=== PATIENT | male | born 1985 | race Two or more races ===

== ENCOUNTER 2020-06-14 14:11 | Emergency (ER) | payer OTHER ==
[~2020-06-14] VITALS: Ht 167.6 cm; Wt 72.0 kg
[2020-06-14 14:26] VITALS: BP 110/38
[2020-06-14] MEDS ORDERED: HYDROcodone/APAP 5/325MG 1 TAB TABLET PO ONE (15:30)
[2020-06-14] MEDS ORDERED: LIDOCAINE (700MG/PATCH) PATCH. TD SCH (15:30)
[2020-06-14] MEDS ORDERED: KETOROLAC 30 MG/ML VIAL. IM ONE (15:30)
[2020-06-14] MEDS ORDERED: CYCLOBENZAPRINE 10 MG TABLET. PO ONE (15:30)
--- NOTE | 2020-06-14 15:35 | PHYS DOC ---
Past History Past Medical History: No Pertinent History Past Surgical History: No Surgical History Alcohol Use: None General Adult EDM: Chief Complaint: LOWER EXT PAIN HPI: HPI: History is obtained from the patient. Patient is a 34-year-old male with no reported PMH who presents with complaint of right lower back pain. 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 He states the pain began 2 days ago after a strenuous workout. He states the pain began as a dull cramping pain in his right lower back. He states the following morning after waking up he noted intense cramping and had significant difficulty getting out of bed. He states he was able to go to work however where he works at [employer]. States pain is sharp in nature radiates down his right leg. States he is able to ambulate and bend his leg although it is somewhat painful. Denies abdominal pain. Denies midline back pain. Denies any syncope. Denies fevers or vomiting. Denies chest pain or shortness of breath. Not tried any medication prior to arrival. Denies direct trauma to the back through his training or any other activity. Patient denies any urinary retention, stool incontinence, saddle anesthesia, history of IV drug use, or history of cancer. Review of Systems: Review of Systems: Constitutional: Denies fever or chills Eyes: Denies change in visual acuity HENT: Denies nasal congestion or sore throat Respiratory: Denies cough or shortness of breath Cardiovascular: Denies chest pain or edema GI: Denies abdominal pain, nausea, vomiting, bloody stools or diarrhea : Denies dysuria Musculoskeletal: Positive for back pain Integument: Denies rash Neurologic: Denies headache, focal weakness or sensory changes Endocrine: Denies polyuria or polydipsia Lymphatic: Denies swollen glands Psychiatric: Denies depression or anxiety Heart Score: Risk Factors: Risk Factors: DM, Current or recent (<one month) smoker, HTN, HLP, family history of CAD, obesity. Risk Scores: Score 0 - 3: 2.5% MACE over next 6 weeks - Discharge Home Score 4 - 6: 20.3% MACE over next 6 weeks - Admit for Clinical Observation Score 7 - 10: 72.7% MACE over next 6 weeks - Early Invasive Strategies Current Medications: Current Meds: Current Medications Medications (Trade) Dose Ordered Sig/Rosmery Start Time Stop Time Status Last Admin Dose Admin Acetaminophen/ Hydrocodone Bitart (Lortab 5/325) 1 tab 1X ONCE 06/14/20 15:30 06/14/20 15:31 DC Cyclobenzaprine HCl (Flexeril) 5 mg 1X ONCE 06/14/20 15:30 06/14/20 15:31 DC Ketorolac Tromethamine (Toradol 30mg Vial) 30 mg 1X ONCE 06/14/20 15:30 06/14/20 15:31 DC Lidocaine (Lidoderm) 1 patch 1X 06/14/20 15:30 Allergies: Allergies: Allergies Coded Allergies Type Severity Reaction Last Updated Verified No Known Drug Allergies 06/14/20 No Physical Exam: PE: Constitutional: Well developed, well nourished, no acute distress, non-toxic appearance. [] HENT: Normocephalic, atraumatic, bilateral external ears normal, oropharynx moist, no oral exudates, nose normal. [] Eyes: PERRLA, EOMI, conjunctiva normal, no discharge. [] Neck: Normal range of motion, no tenderness, supple, no stridor. [] Cardiovascular:Heart rate regular rhythm, no murmur [] Lungs & Thorax: Bilateral breath sounds clear to auscultation [] Abdomen: , soft, no tenderness, no masses, no pulsatile masses. [] Skin: Warm, dry, no erythema, no rash. [] Back: + 5/5 motor strength in dorsiflexion and plantarflexion of the great toes bilaterally. Sensation intact between the webbing of the first and second toes bilaterally. Hypertonic musculature palpated in the right paraspinal tissue in the lumbar region. Reproducible tenderness. Positive straight leg test. No midline tenderness, step-offs, or deformities. Extremities: No tenderness, no cyanosis, no clubbing, ROM intact, no edema. [] Neurologic: Alert and oriented X 3, normal motor function, normal sensory function, no focal deficits noted. [] Psychologic: Affect normal, judgement normal, mood normal. [] Current Patient Data: Vital Signs: Vital Signs Date Time Temp Pulse Resp B/P (MAP) Pulse Ox O2 Delivery O2 Flow Rate FiO2 06/14/20 14:26 98.8 57 16 110/38 (62) 100 Room Air EKG: EKG: [] Radiology/Procedures: Radiology/Procedures: [] Course & Med Decision Making: Course & Med Decision Making Pertinent Labs and Imaging studies reviewed. (See chart for details) [] Overall patient is well-appearing 34-year-old male who presents with chief complaint of right lower back pain. No red flag signs or symptoms regarding his back pain. Is likely due to his intense workouts. Given the lack of red flag signs and symptoms or trauma CT imaging will be deferred. Denies urinary symptoms. Urinalysis will be deferred. This likely musculoskeletal nature based on history and exam. Patient was given medications in the emergency department and did show significant relief. He was able to ambulate without difficulty. His repeat examination remains benign. I do feel his appropriate for discharge home. He will be given a primary care doctor to follow-up with. Return precautions discussed and understood. Counseled on back pain exercises. Stable for discharge home. Dragon Disclaimer: Dragon Disclaimer: This electronic medical record was generated, in whole or in part, using a voice recognition dictation system. Departure Departure: Impression: Primary Impression: Low back pain Qualified Codes: M54.41 - Lumbago with sciatica, right side Disposition: HOME/RESIDENCE PRIOR TO ADM Condition: STABLE Referrals: CARMEL SHEETS MD (PCP) Patient Instructions: Back Exercises Additional Instructions: Please follow-up your primary care physician in the next 2 to 3 days. Scripts Lidocaine (Lidocaine PATCH ) 1 Each Adh..patch 1 EACH TP DAILY for FOR LOCAL PAIN for 5 Days, #5 PATCH REMOVE AFTER 12 HOURS. 4% Prov: ALISHA HUBBARD DO 06/14/20 Ibuprofen (IBUPROFEN) 200 Mg Tablet 600 MG PO QIDPRN PRN for PAIN, #15 TAB Prov: ALISHA HUBBARD DO 06/14/20 Cyclobenzaprine Hcl (CYCLOBENZAPRINE HCL) 10 Mg Tablet 1 TAB PO TID PRN PRN for PAIN, #12 TAB Prov: ALISHA HUBBARD DO 06/14/20 ALISHA HUBBARD DO Jun 14, 2020 15:35
[2020-06-14] MEDS ORDERED: LIDO700A21 TP (15:55)
[2020-06-14] MEDS ORDERED: IBUP-1673 PO (15:55)
[2020-06-14] MEDS ORDERED: CYCL-331 PO (15:55)
== END 2020-06-14 16:10 | disposition home or self-care (01) ==
LOC: ER 14:11
DX: M54.41 Lumbago with sciatica, right side (principal)
CPT/HCPCS: 96372; 99284; J1885

== ENCOUNTER 2020-06-18 10:22 | Emergency (ER) | payer OTHER ==
[~2020-06-18] VITALS: Ht 167.6 cm; Wt 74.4 kg
[~2020-06-18 10:22] MED LIST: CYCL-331 PO; IBUP-1673 PO; LIDO700A21 TP
[2020-06-18 11:00] VITALS: BP 106/66
[2020-06-18] MEDS ORDERED: LIDOCAINE (700MG/PATCH) PATCH. TD SCH (11:15)
[2020-06-18] MEDS ORDERED: KETOROLAC 30 MG/ML VIAL. IM ONE (11:15)
[2020-06-18] MEDS ORDERED: CYCLOBENZAPRINE 10 MG TABLET. PO ONE (11:15)
--- NOTE | 2020-06-18 11:37 | RAD ---
VENOUS LOWER EXTREMITY RIGHT History: Reason: RLE pain / Spl. Instructions: / History: Comparison: None. Discussion: Multiple longitudinal and transverse high resolution real-time images of the venous system of right lower extremity were obtained with color and Doppler sampling. The common femoral, superficial femoral, popliteal and proximal calf veins are all patent and demonstrate normal flow and compressibility. Normal respiratory phasicity and augmentation is present. Mildly prominent right inguinal lymph nodes, likely reactive. Impression: 1. No evidence of deep vein thrombosis. Electronically signed by: Red Lange DO (06/18/2020 11:35 AM) [id number]
--- NOTE | 2020-06-18 12:02 | RAD ---
CT LUMBAR SPINE WO CONTRAST, CT THORACIC SPINE WO CONTRAST History:Reason: low back pain. numbness radiating down R leg. / Spl. Instructions: / History: Technique: Noncontrast CT was performed of the lumbar spine. Multiplanar reconstructions were performed. Exposure: One or more of the following individualized dose reduction techniques were utilized for this examination: 1. Automated exposure control 2. Adjustment of the mA and/or kV according to patient size 3. Use of iterative reconstruction technique. Comparison: None Findings: Thoracic spine CT: Normal vertebral body height and alignment. No fracture. Mild multilevel degenerative disc changes most prominent T10-T11 and T11-T12. No high-grade canal or neuroforaminal narrowing. 5 mm right lower lobe pulmonary nodule (series 2 image 70). Prior cholecystectomy. CT lumbar spine: Minimal retrolisthesis L5 on S1. Normal vertebral body height. No fracture. T12-L1: No canal or neuroforaminal narrowing. L1-L2: No canal or neuroforaminal narrowing. L2-L3: Minimal disc bulge. No canal or neuroforaminal narrowing. L3-L4: Minimal disc bulge. No canal or neuroforaminal narrowing. L4-L5: Left central disc protrusion. Mild left subarticular recess narrowing with probable abutment of the descending left L5 nerve root.. No canal narrowing. Mild facet arthropathy. Ligamentum flavum thickening. No neuroforaminal narrowing. L5-S1: Broad-based central disc bulge. Mild facet arthropathy. Bilateral subarticular recess narrowing with probable abutment of the descending S1 nerve roots. Minimal canal narrowing. No neuroforaminal narrowing. Impression: Thoracic spine CT: 1. Mild multilevel thoracic spondylosis. 2. Small right lower lobe pulmonary nodule. Recommend one-year follow-up if high risk. Lumbar spine CT: 1. Mild lumbar spondylosis most prominent L4-L5 and L5-S1 with subarticular recess narrowing. Correlate for radiculopathy. MRI can better evaluate as clinically warranted. Electronically signed by: Red Lange DO (06/18/2020 11:59 AM) [id number]
[2020-06-18] MEDS ORDERED: METH8TAB3 PO (12:17)
--- NOTE | 2020-06-18 12:17 | PHYS DOC ---
Past History Past Medical History: No Pertinent History Past Surgical History: Cholecystectomy, Other Additional Past Surgical Histo: RIGHT ANKLE Alcohol Use: None General Adult EDM: Chief Complaint: BACK PAIN OR INJURY HPI: HPI: History obtained for the patient. Patient is a 34-year-old male with no reported PMH who presents with chief complaint of right lower back pain. Patient states he has had the pain for the past week. He states that he was seen in our emergency department approximately 6 days ago for similar issue. States he was discharged home with medication that helped temporarily. He states he did follow-up with his primary care physician yesterday who did give him an injection of some sort but did not help the pain. States the pain is been persistent. States that his right lower back pain that radiates down his right leg. He does note associated paresthesias. He states it is somewhat more painful to ambulate or bend over. 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 He states he has been able to ambulate. Denies abdominal pain. Does note some right posterior calf pain. Denies any leg swelling. Denies any increase redness. Denies any IV drug use. Denies any trauma to the back directly. His greatest complaint currently is that his back pain does not seem to be improving. Denies fevers or vomiting. States pain is aching in nature. Patient denies any urinary retention, stool incontinence, saddle anesthesia, history of IV drug use, or history of cancer.. Review of Systems: Review of Systems: Constitutional: Denies fever or chills Eyes: Denies change in visual acuity HENT: Denies nasal congestion or sore throat Respiratory: Denies cough or shortness of breath Cardiovascular: Denies chest pain or edema GI: Denies abdominal pain, nausea, vomiting, bloody stools or diarrhea : Denies dysuria Musculoskeletal: Positive for back pain Integument: Denies rash Neurologic: Denies headache, focal weakness or sensory changes Endocrine: Denies polyuria or polydipsia Lymphatic: Denies swollen glands Psychiatric: Denies depression or anxiety Heart Score: Risk Factors: Risk Factors: DM, Current or recent (<one month) smoker, HTN, HLP, family histo ry of CAD, obesity. Risk Scores: Score 0 - 3: 2.5% MACE over next 6 weeks - Discharge Home Score 4 - 6: 20.3% MACE over next 6 weeks - Admit for Clinical Observation Score 7 - 10: 72.7% MACE over next 6 weeks - Early Invasive Strategies Current Medications: Current Meds: Current Medications Medications (Trade) Dose Ordered Sig/[facility] Start Time Stop Time Status Last Admin Dose Admin Cyclobenzaprine HCl (Flexeril) 10 mg 1X ONCE 06/18/20 11:15 06/18/20 11:16 DC 06/18/20 11:40 10 MG Ketorolac Tromethamine (Toradol 30mg Vial) 30 mg 1X ONCE 06/18/20 11:15 06/18/20 11:16 DC 06/18/20 11:41 30 MG Lidocaine (Lidoderm) 1 patch 1X 06/18/20 11:15 Allergies: Allergies: Allergies Coded Allergies Type Severity Reaction Last Updated Verified No Known Drug Allergies 06/14/20 No Physical Exam: PE: Constitutional: Well developed, well nourished, no acute distress, non-toxic appearance. [] HENT: Normocephalic, atraumatic, bilateral external ears normal, oropharynx moist, no oral exudates, nose normal. [] Eyes: PERRLA, EOMI, conjunctiva normal, no discharge. [] Neck: Normal range of motion, no tenderness, supple, no stridor. [] Cardiovascular:Heart rate regular rhythm, no murmur [] Lungs & Thorax: Bilateral breath sounds clear to auscultation [] Abdomen: Right-sided associated hypertonic musculature appreciated. Soft, no tenderness, no masses, no pulsatile masses. [] Skin: Warm, dry, no erythema, no rash. [] Back: No cervical, thoracic, or lumbar midline tenderness palpation, step-offs, or deformities. Positive straight leg test on the right. + 5/5 motor strength in dorsiflexion and plantarflexion of the great toes bilaterally. Sensation intact between the webbing of the first and second toes bilaterally. Extremities: No tenderness, no cyanosis, no clubbing, ROM intact, no edema. Strong +2-4 DP pulses bilaterally. No coolness to touch. Brisk capillary refill. [] Neurologic: Alert and oriented X 3, normal motor function, normal sensory function, no focal deficits noted. [] Psychologic: Affect normal, judgement normal, mood normal. [] Current Patient Data: Vital Signs: Vital Signs Date Time Temp Pulse Resp B/P (MAP) Pulse Ox O2 Delivery O2 Flow Rate FiO2 06/18/20 11:00 97.9 85 20 106/66 (79) 98 Room Air EKG: EKG: [] Radiology/Procedures: Radiology/Procedures: [address] [address] IMAGING REPORT Signed PATIENT: DIMITRY OROZCO ACCOUNT: [id number] : 1985 LOCATION: ER AGE: 34 SEX: M EXAM STATUS: REG ER ORD. PHYSICIAN: ALISHA HUBBARD DO REASON: low back pain. numbness radiating down R leg. PROCEDURE: CT LUMBAR SPINE WO CONTRAST CT LUMBAR SPINE WO CONTRAST, CT THORACIC SPINE WO CONTRAST History:Reason: low back pain. numbness radiating down R leg. / Spl. Instructions: / History: Technique: Noncontrast CT was performed of the lumbar spine. Multiplanar reconstructions were performed. Exposure: One or more of the following individualized dose reduction techniques were utilized for this examination: 1. Automated exposure control 2. Adjustment of the mA and/or kV according to patient size 3. Use of iterative reconstruction technique. Comparison: None Findings: Thoracic spine CT: Normal vertebral body height and alignment. No fracture. Mild multilevel degenerative disc changes most prominent T10-T11 and T11-T12. No high-grade canal or neuroforaminal narrowing. 5 mm right lower lobe pulmonary nodule (series 2 image 70). Prior cholecystectomy. CT lumbar spine: Minimal retrolisthesis L5 on S1. Normal vertebral body height. No fracture. T12-L1: No canal or neuroforaminal narrowing. L1-L2: No canal or neuroforaminal narrowing. L2-L3: Minimal disc bulge. No canal or neuroforaminal narrowing. L3-L4: Minimal disc bulge. No canal or neuroforaminal narrowing. L4-L5: Left central disc protrusion. Mild left subarticular recess narrowing with probable abutment of the descending left L5 nerve root.. No canal narrowing. Mild facet arthropathy. Ligamentum flavum thickening. No neuroforaminal narrowing. L5-S1: Broad-based central disc bulge. Mild facet arthropathy. Bilateral subarticular recess narrowing with probable abutment of the descending S1 nerve roots. Minimal canal narrowing. No neuroforaminal narrowing. Impression: Thoracic spine CT: 1. Mild multilevel thoracic spondylosis. 2. Small right lower lobe pulmonary nodule. Recommend one-year follow-up if high risk. Lumbar spine CT: 1. Mild lumbar spondylosis most prominent L4-L5 and L5-S1 with subarticular recess narrowing. Correlate for radiculopathy. MRI can better evaluate as clinically warranted. Electronically signed by: Red Lange DO (06/18/2020 11:59 AM) [id number] DICTATED AND SIGNED BY: RED LANGE DO DATE: 06/18/20 [id number] CC: CARMEL SHEETS MD; ALISHA HUBBARD DO ~ [place] [address] IMAGING REPORT Signed PATIENT: DIMITRY OROZCO ACCOUNT: [id number] : 1985 LOCATION: ER AGE: 34 SEX: M EXAM STATUS: PRE ER ORD. PHYSICIAN: ALISHA HUBBARD DO REASON: RLE pain PROCEDURE: VENOUS LOWER EXTREMITY RIGHT VENOUS LOWER EXTREMITY RIGHT History: Reason: RLE pain / Spl. Instructions: / History: Comparison: None. Discussion: Multiple longitudinal and transverse high resolution real-time images of the venous system of right lower extremity were obtained with color and Doppler sampling. The common femoral, superficial femoral, popliteal and proximal calf veins are all patent and demonstrate normal flow and compressibility. Normal respiratory phasicity and augmentation is present. Mildly prominent right inguinal lymph nodes, likely reactive. Impression: 1. No evidence of deep vein thrombosis. Electronically signed by: Red Lange DO (06/18/2020 11:35 AM) [id number] DICTATED AND SIGNED BY: RED LAGNE DO DATE: 06/18/20 [id number] CC: CARMEL SHEETS MD; ALISHA HUBBARD DO ~ [] Course & Med Decision Making: Course & Med Decision Making Pertinent Labs and Imaging studies reviewed. (See chart for details) [] Patient is an overall well-appearing 34-year-old male who presents with chief complaint of right lower back pain that radiates down his right leg. He notes associated paresthesias. Low suspicion for vascular etiology. Strong palpable +2-4 DP pulses bilaterally. DVT study of the right lower extremity negative. CT imaging of the thoracic and lumbar spine did show spondylolysis of multiple levels concerning for associated radiculopathy. This does appear consistent with the clinical picture. Do not feel emergent MRI is indicated given he has no acute neurologic symptoms outside of paresthesias. He has been able to ambulate. Continues to deny any red flag signs or symptoms regarding his back pain. He was c encouraged to continue to use supportive care at home. I instructed him to follow-up with Dr. Hopper again in the next 2 to 3 days which he states he can do. He may benefit from outpatient MRI. He will be given a short course of oral steroids for potential swelling. Return precautions discussed and understood. Stable for discharge home. James Disclaimer: James Disclaimer: This electronic medical record was generated, in whole or in part, using a voice recognition dictation system. Departure Departure: Impression: Primary Impression: Low back pain Qualified Codes: M54.41 - Lumbago with sciatica, right side Additional Impressions: Spondylosis Pulmonary nodule Disposition: HOME SELF CARE/HOMELESS Condition: STABLE Referrals: CARMEL SHEETS MD (PCP) Patient Instructions: Spondylolysis with [facility] Additional Instructions: Please follow-up with your primary care physician in the next 2 to 3 days. Scripts Methylprednisolone (METHYLPREDNISOLONE) 8 Mg Tablet 8 MG PO DAILY for pain, #36 TAB Prov: ALISHA HUBBARD DO 06/18/20 ALISHA HUBBARD DO Jun 18, 2020 12:17
== END 2020-06-18 12:30 | disposition home or self-care (01) ==
LOC: ER 10:22
DX: M54.41 Lumbago with sciatica, right side (principal); M47.817 Spondylosis without myelopathy or radiculopathy, lumbosacral region; R91.1 Solitary pulmonary nodule; M79.661 Pain in right lower leg
CPT/HCPCS: 72128; 72131; 93971; 99285; J1885

== ENCOUNTER 2020-12-20 09:17 | Emergency (ER) | payer OTHER ==
[~2020-12-20] VITALS: Ht 167.6 cm; Wt 70.4 kg
[~2020-12-20 09:17] MED LIST changes: +METH8TAB3 PO
[2020-12-20 09:25] VITALS: BP 123/65
--- NOTE | 2020-12-20 10:13 | PHYS DOC ---
Past History Past Medical History: No Pertinent History Past Surgical History: Other Additional Past Surgical Histo: left ankle Alcohol Use: None Adult General Chief Complaint Chief Complaint: LOWER EXTREMITY SWELLING HPI HPI Patient is a healthy 35-year-old male who presents for left leg pain. Onset was on Monday, reports he was at [employer] martial arts practice and got kicked in the left lateral portion of his leg. Ever since, he has had focal nonradiating pain to medial portion of left knee. States he was able to work over the weekend at [employer] but reports increased pain, erythema, development of heat and tenderness with palpation. He has no known medical issues, takes no medications on a daily basis besides vitamins. No history of MRSA. Has no crepitus, motor or sensory function loss, no neurologic symptoms Review of Systems Review of Systems Fourteen body systems of review of systems have been reviewed. See HPI for pertinent positives and negative responses, other parks all other systems are negative, non-pertinent or non-contributory Allergies Allergies Allergies Coded Allergies Type Severity Reaction Last Updated Verified No Known Drug Allergies 06/14/20 No Physical Exam Physical Exam Constitutional: Well developed, well nourished, no acute distress, non-toxic appearance. HENT: Normocephalic, atraumatic, bilateral external ears normal, oropharynx moist, no oral exudates, nose normal. Eyes: PERRLA, EOMI, conjunctiva normal, no discharge. Neck: Normal range of motion, no tenderness, supple, no stridor. Cardiovascular: Heart rate regular, sinus rhythm, no murmurs rubs or gallops Lungs & Thorax: Bilateral breath sounds clear to auscultation Abdomen: Bowel sounds normal, soft, no tenderness, no masses, no pulsatile masses. Nonsurgical abdomen, no peritoneal signs Skin: Warm, dry, erythematous region medial and inferior to actual knee joint without any palpable abnormalities of the knee with various anterior posterior Thalia test, valgus varus strain, no crepitus, no obvious effusion. Skin findings consistent with cellulitis given presentation and symptoms. Back: No tenderness, no CVA tenderness. Extremities: No tenderness, no cyanosis, no clubbing, ROM intact, no edema. Legs equal in diameter, no tenderness to palpation of calf muscles/negative Homans' sign Neurologic: Alert and oriented X 3, grossly normal motor & sensory function, no focal deficits noted. Psychologic: Affect normal, judgement normal, mood normal. Current Patient Data Vital Signs Vital Signs Date Time Temp Pulse Resp B/P (MAP) Pulse Ox O2 Delivery O2 Flow Rate FiO2 12/20/20 09:25 99.2 97 16 123/65 (84) 98 Room Air EKG EKG [] Radiology/Procedures Radiology/Procedures Exam performed: 2 views left tibia fibula and 3 views left knee. Clinical indication: Pain Date of Service: 12/20/2020 Comparison: None available Findings: Normal alignment of the medial and lateral tibiofemoral joint is preserved. The patellofemoral joint appears unremarkable. The articular margins are smooth. There is no fracture or dislocation. Evidence of calcific loose body or joint effusion is absent. AP and lateral viewd left tibia-fibula are obtained. Normal alignment of the knee joint is preserved. There are postoperative changes about the distal fibula with sideplate and several screws causing arthrodesis at the distal tibiofibular joint. Impression: 1. No acute radiographic abnormality seen in the left knee. 2. No acute abnormality seen in the left tibia-fibula Electronically signed by: Katarina Sharif MD (12/20/2020 10:43 AM) [facility] Heart Score C/O Chest Pain: N/A Risk Factors: Risk Factors: DM, Current or recent (<one month) smoker, HTN, HLP, family history of CAD, obesity. Risk Scores: Risk Factors: DM, Current or recent (<one month) smoker, HTN, HLP, family history of CAD, obesity. Course & Med Decision Making Course & Med Decision Making Hemodynamically stable patient with history and physical examination consistent with left medial knee pain after traumatic injury during [facility] practice Radiographs of left knee and lower extremity unremarkable. Physical examination concerning for cellulitis. Given location and symptoms, less likely blood clot versus other abnormality Discussed ER visit with patient and several proposed plans of care. Joint decision to treat with antibiotics with close PCP follow-up for repeat evaluation. Discussed this might be an acute presentation more concerning pathology and so, advised strict follow-up in upcoming 72 hours Patient has good access to care, states he will be able to see his primary care physician by then. Strict return precautions were given to him with good understanding, all questions and concerns addressed prior to ER departure with antibiotics and extremely short-term narcotic pain prescription for severe pain Dragon Disclaimer Dragon Disclaimer This electronic medical record was generated, in whole or in part, using a voice recognition dictation system. Departure Departure: Impression: Primary Impression: Left leg cellulitis Disposition: 01 DC HOME SELF CARE/HOMELESS Condition: STABLE Referrals: CARMEL SHEETS MD (PCP) Patient Instructions: Cellulitis Additional Instructions: You were seen for an infection called cellulitis. You should vito the area of redness when you get home. If your redness spreads past the marked area at 24 hours you should have it evaluated again. You do not have an abscess right now but you could develop one. If so you will need to have it drained. As discussed, this might be an early presentation of something else such as a blood clot to your left lower extremity. As such, it is prudent you follow-up with your primary care physician within upcoming 1 to 3 days for repeat evaluation. You should return to the ED immediately if you develop worsening pain, fever, swelling, redness, drainage, any sign of abscess, or any other new or concerning symptoms. Take the entire course of antibiotics as prescribed. Scripts Hydrocodone/Acetaminophen (Hydrocodone-Acetamin 5-325 mg) 1 Each Tablet 1 EACH PO Q6H PRN for SEVERE PAIN 7-10, #7 TAB Prov: ELENA DAVE DO 12/20/20 Cephalexin (KEFLEX) 750 Mg Capsule 1 CAP PO TID for cellulitis for 7 Days, #21 CAP 0 Refills Prov: ELENA DAVE DO 12/20/20 ELENA DAVE DO Dec 20, 2020 10:13
[2020-12-20] MEDS: ACETAMINOPHEN 500 MG TABLET PO ONE (10:15)
[2020-12-20] MEDS: HYDROcodone/APAP 5/325MG 1 TAB TABLET PO ONE (10:44)
--- NOTE | 2020-12-20 10:45 | RAD ---
Exam performed: 2 views left tibia fibula and 3 views left knee. Clinical indication: Pain Date of Service: 12/20/2020 Comparison: None available Findings: Normal alignment of the medial and lateral tibiofemoral joint is preserved. The patellofemoral joint appears unremarkable. The articular margins are smooth. There is no fracture or dislocation. Evidence of calcific loose body or joint effusion is absent. AP and lateral viewd left tibia-fibula are obtained. Normal alignment of the knee joint is preserved. There are postoperative changes about the distal fibula with sideplate and several screws causing ar throdesis at the distal tibiofibular joint. Impression: 1. No acute radiographic abnormality seen in the left knee. 2. No acute abnormality seen in the left tibia-fibula Electronically signed by: Katarina Sharif MD (12/20/2020 10:43 AM) [facility]
[2020-12-20] MEDS ORDERED: CEPH750C9 PO (11:23)
[2020-12-20] MEDS ORDERED: HYDR-2759 PO (11:25)
[2020-12-20] MEDS: CEPHALEXIN 250 MG CAPSULE PO ONE (11:46)
== END 2020-12-20 11:48 | disposition home or self-care (01) ==
LOC: ER 09:17
DX: L03.116 Cellulitis of left lower limb (principal)
CPT/HCPCS: 73562; 73590; 99284-25

== ENCOUNTER → 2020-12-21 | Outpatient (CLI) | payer OTHER ==
[2020-12-20 09:25] VITALS: BP 123/65
[~2020-12-21] MED LIST changes: +CEPH750C9 PO; +HYDR-2759 PO
--- NOTE | 2020-12-21 15:34 | RAD ---
Exam Date: 12/21/2020 2:54 PM US DPLX VENOUS EXTREMITY LOWER LT Indication: Reason: LT LEG SWELLING, REDNESS AND PAIN / Spl. Instructions: / History: INDICATION: Lower extremity pain/swelling TECHNIQUE: Grayscale sonogram, color Doppler, and spectral Doppler waveform analysis of the lower ex tremity venous system was performed on the left. FINDINGS: The left common femoral, superficial femoral, central greater saphenous, popliteal, posterior tibial and peroneal veins are compressible and demonstrate normal color Doppler flow and normal spontaneous phasic waveforms or normal response to augmentation. There is a 5.6 x 2.6 x 1.3 cm ill-defined subcutaneous collection along the medial left calf proximal ly. IMPRESSION: No evidence of deep venous thrombosis in the left lower extremity. Subcutaneous collection along the medial left calf proximally is nonspecific but suggestive of a daniele urszula, given the provided history. Seroma or abscess would also be in the differential. Electronically signed by: Josep Aldrich MD (12/21/2020 3:31 PM) [id number]
== END ==
LOC: US 14:42
PROVIDERS: ATTEND Family Medicine
DX: I82.432 Acute embolism and thrombosis of left popliteal vein (principal); R60.9 Edema, unspecified
CPT/HCPCS: 93971